=== PATIENT | male | born 1980 | race Hispanic/Latino ===

== ENCOUNTER 2021-11-28 10:35 | Emergency (ER) | payer SELFPAY | END 2021-11-28 11:54 | disposition home or self-care (01) | LOC: MADERS 10:35 | DX: S01.511A Laceration without foreign body of lip, initial encounter (principal); S30.0XXA Contusion of lower back and pelvis, initial encounter; F17.210 Nicotine dependence, cigarettes, uncomplicated; W55.22XA Struck by cow, initial encounter | CPT/HCPCS: 70486 ==